=== PATIENT | female | born 1995 | race Caucasian/White ===

== ENCOUNTER 2021-09-23 09:27 | Emergency (ER) | payer OTHER, SELFPAY ==
[2021-09-23 09:41] VITALS: BP 110/65; PULSE 82; RESP 16; TEMP 36.9; O2SAT 99
--- NOTE | 2021-09-23 10:02 | ED.DIZZY ---
HPI - Dizziness General Chief Complaint: Ear Stated Complaint: dizziness Time Seen by Provider: 09/23/21 10:15 Source: patient and RN notes reviewed Mode of arrival: ambulatory Limitations: no limitations History of Present Illness HPI Narrative: 26-year-old female presents with concern for ear fullness, whooshing sound, feels like her equilibrium is off. Reports sitting up from a lying position elicits the dizzy feeling. She denies any headache, thunderclap headache, weakness in any extremity, difficulty speaking or swallowing. Reports she has just ended her 10-day quarantine. For positive Covid infection. She reports mild nasal congestion and rhinorrhea. She denies body aches, fever, sweats, chills, sore throat, diarrhea, abdominal pain. Reports nausea and vomiting secondary to the dizziness. Reports she is taken Dramamine with no results. MD elicited complaint: dizziness Related Data Home Medications Medication Instructions Recorded Confirmed albuterol sulfate 90 mcg INHALATION PRN PRN 09/23/21 09/23/21 medroxyprogesterone [Depo-Provera 150 mg IM PER PKG DIR 09/23/21 09/23/21 Contraceptive] sertraline 100 mg PO DAILY 09/23/21 09/23/21 Allergies Allergy/AdvReac Type Severity Reaction Status Date / Time No Known Allergies Allergy Verified 09/23/21 09:58 Review of Systems Review of Systems: CONSTITUTIONAL: Denies malaise, chills, sweats, or fever. EYES: Denies visual changes ENT: Reports rhinorrhea, congestion, ear fullness. Denies sinus pain, otalgia or sore throat. CARDIOVASCULAR: Denies chest pain, palpitations, or edema. RESPIRATORY: Denies cough or dyspnea. GASTROINTESTINAL: Denies abdominal pain, diarrhea. Reports nausea and vomiting MUSCULOSKELETAL: Denies myalgia. NEUROLOGIC: Denies numbness, weakness, or headache. Reports dizziness All systems reviewed & are unremarkable except as noted in HPI and below PMFSH Family History Family History (Updated 05/08/16 @ 23:19 by DOCTOR UNKNOWN) Sibling Family history of mental disorder Depression Asthma Grandparent Family history of condition Family history of malignant neoplasm of breast Diabetes mellitus Social History Social History Smoking status: Light tobacco smoker Alcohol intake: never Comments At time of signature, agree with nursing past medical, surgical, social and family history. There is no relevant family history pertinent to the presenting complaint Exam Narrative: GENERAL: Well-appearing, well-nourished, and in no acute distress. HEAD: Normocephalic EYES: PERRLA, conjunctivae clear ENT: Nares clear, turbinates edematous and erythematous, clear discharge. Mucous membranes moist. TM pearly mar with dull light reflex bilaterally; no tragal tenderness. Oropharynx not erythematous without lesions. Tonsils not enlarged and without exudate, no drooling, no hoarseness, no trismus, uvula midline. NECK: Supple. No lymphadenopathy CHEST: Clear to auscultation, breath sounds equal. No wheezing, rhonchi, rales, or stridor. No respiratory distress, speaks in full sentences. HEART: Regular rate and rhythm. No murmur heard. SKIN: Warm, dry, no rash. NEURO: Alert and oriented x3. No focal deficits. Cranial nerves II through XII grossly intact. Nacho-Hallpike test negative PSYCH: Normal mood and affect Course Course Emergency Course: Patient is aware of diagnosis, understands and agrees to treatment plan. Anticipatory guidance given. Patient agrees to follow-up as directed and is aware of reasons to seek care at the emergency department. Portions of this record may have been created with voice recognition software Vital Signs Vital signs: Vital Signs Temperature 98.4 F 09/23/21 09:41 Pulse Rate 82 09/23/21 09:41 Respiratory Rate 16 09/23/21 09:41 Blood Pressure 110/65 09/23/21 09:41 Pulse Oximetry 99 09/23/21 09:41 Temperature 98.4 F 09/23/21 09:41 Pulse Rate 82 09/23/21 09:41 Respiratory Rate
== END 2021-09-23 10:44 | disposition home or self-care (01) ==
PROVIDERS: Emergency Provider Nurse Practitioner; PCP Registered Nurse
DX: H69.91 Unspecified Eustachian tube disorder, right ear (principal); F17.200 Nicotine dependence, unspecified, uncomplicated
CPT/HCPCS: 99213; G0463

== ENCOUNTER 2022-06-16 18:27 | Emergency (ER) | payer OTHER, SELFPAY ==
[2022-06-16 19:45] VITALS: BP 130/86; PULSE 98; RESP 12; TEMP 36.4; O2SAT 98
--- NOTE | 2022-06-16 19:53 | ED.GENADULT ---
HPI - General Adult General Chief complaint: Extremity Injury, Upper Stated complaint: bump right thumb Time Seen by Provider: 06/16/22 19:53 Source: patient Mode of arrival: ambulatory Limitations: no limitations History of Present Illness HPI narrative: 27 y/o female presented for right thumb redness and pain. Site started as small fluid filled bump, she squeezed it and it became more red and swollen. Denies streaking or fever. She gets these small bumps to her fingers and hands at times, they feels itchy with mild pain. She squeezes them but states she has never had an infected site. Has not taken anything for symptoms. Related Data Home Medications Medication Instructions Recorded Confirmed albuterol sulfate 90 mcg/actuation 90 mcg inhalation PRN PRN 09/23/21 06/16/22 aerosol inhaler Shortness Of Breath Or Wheezing medroxyprogesterone 150 mg/mL 150 mg IM PER PKG DIR 09/23/21 06/16/22 intramuscular suspension sertraline 100 mg tablet 100 mg PO DAILY 09/23/21 06/16/22 fluticasone 250 mcg-salmeterol 50 250 inh inhalation DAILY 06/16/22 06/16/22 mcg/dose blistr powdr for inhalation (Advair Diskus) lorazepam 1 mg tablet 1 mg PO DAILY PRN Anxiety 06/16/22 06/16/22 Allergies Allergy/AdvReac Type Severity Reaction Status Date / Time No Known Allergies Allergy Verified 06/16/22 19:40 Review of Systems Review of Systems: CONSTITUTIONAL: Denies body aches, fever, chills, or sweats. EYES: Denies visual changes, redness, or discharge. ENT: Denies rhinorrhea, congestion CARDIOVASCULAR: Denies chest pain, palpitations, or edema. RESPIRATORY: Denies cough or dyspnea. GASTROINTESTINAL: Denies abdominal pain, nausea, vomiting, or diarrhea. SKIN: Redness and swelling to right hand MUSCULOSKELETAL: Denies back pain, joint pain, or myalgia. NEUROLOGIC: Denies headache, numbness, tingling, or weakness. [facility] Family History Family History Sibling Family history of mental disorder Depression Asthma Grandparent Family history of condition Family history of malignant neoplasm of breast Diabetes mellitus Social History Social History Smoking status: Light tobacco smoker Alcohol intake: never Comments At time of signature, I have reviewed and agree with nursing past medical, surgical, social and family history unless otherwise noted. Please see nursing chart for further information. There is no relevant family history pertinent to the presenting complaint Exam Narrative: GENERAL: Well-appearing EYES: conjunctivae clear, and EOMI. ENT: Mucous membranes moist. CHEST: Clear to auscultation. HEART: Regular rate and rhythm. SKIN: Warm, dry. Right thumb with induration at web space between 1st and 2nd digit, approx 2mm diameter open center no fluctuance or active drainage; warm and tender to palpation NEURO: Alert and oriented x3. Course Course Emergency Course: Patient is aware of diagnosis, understands and agrees to treatment plan. Anticipatory guidance given. Patient agrees to follow-up as directed and is aware of reasons to seek care at the emergency department. Portions of this record may have been created with voice recognition software Level of Care: Express Care Visit Vital Signs Vital signs: Vital Signs Temperature 97.6 F 06/16/22 19:45 Pulse Rate 98 06/16/22 19:45 Respiratory Rate 12 06/16/22 19:45 Blood Pressure 130/86 06/16/22 19:45 Pulse Oximetry 98 06/16/22 19:45 Temperature 97.6 F 06/16/22 19:45 Pulse Rate 98 06/16/22 19:45 Respiratory Rate 12 06/16/22 19:45 Blood Pressure 130/86 06/16/22 19:45 Pulse Oximetry 98 06/16/22 19:45 Reviewed Medical Decision Making [facility] Narrative Medical decision making narrative: Advised supportive measures and signs/symptoms to go to the ER. Pt is appropriate for outpt treatment and f/u.
== END 2022-06-16 20:08 | disposition home or self-care (01) ==
PROVIDERS: Emergency Provider Nurse Practitioner Family; PCP Registered Nurse
DX: L03.011 Cellulitis of right finger (principal); F17.200 Nicotine dependence, unspecified, uncomplicated; J45.909 Unspecified asthma, uncomplicated; Z86.16 Personal history of COVID-19; E28.2 Polycystic ovarian syndrome; F41.9 Anxiety disorder, unspecified; F32.A Depression, unspecified
CPT/HCPCS: 99213; G0463

== ENCOUNTER 2022-07-01 17:38 | Emergency (ER) | payer OTHER, SELFPAY ==
[2022-07-01 17:47] VITALS: BP 132/69; PULSE 108; RESP 16; TEMP 37.5; O2SAT 100
--- NOTE | 2022-07-01 19:05 | ED.GENADULT ---
HPI - General Adult General Chief complaint: Ear Stated complaint: ear pain Source: patient Mode of arrival: ambulatory Limitations: no limitations History of Present Illness HPI narrative: Patient presents for evaluation of left-sided ear pain for the last 3 days. She indicates she had COVID in the past and had persistent left-sided ear pain following that diagnosis. She underwent several tests including CT of her head. She states approximately 3 weeks ago she had a left tympanostomy tube placed by ENT to alleviate pressure in her left ear. She states that she considerable improvement in her discomfort following the procedure. She indicates that she saw her ENT provider a few weeks ago and was advised that her tube was intact. She states over the past three days her pain has returned. She has some muffled hearing on the left side. She denies any tinnitus or drainage from the left side of her ear. She reports some sinus congestion but denies any significant drainage and also denies fever, chills, sore throat, respiratory symptoms. Related Data Home Medications Medication Instructions Recorded Confirmed albuterol sulfate 90 mcg/actuation 90 mcg inhalation PRN PRN 09/23/21 07/01/22 aerosol inhaler Shortness Of Breath Or Wheezing medroxyprogesterone 150 mg/mL 150 mg IM PER PKG DIR 09/23/21 07/01/22 intramuscular suspension sertraline 100 mg tablet 100 mg PO DAILY 09/23/21 07/01/22 fluticasone 250 mcg-salmeterol 50 250 inh inhalation DAILY 06/16/22 07/01/22 mcg/dose blistr powdr for inhalation (Advair Diskus) lorazepam 1 mg tablet 1 mg PO DAILY PRN Anxiety 06/16/22 07/01/22 buspirone 10 mg tablet 10 mg DIRECTED 07/01/22 07/01/22 montelukast 10 mg tablet 10 mg DIRECTED 07/01/22 07/01/22 Allergies Allergy/AdvReac Type Severity Reaction Status Date / Time No Known Allergies Allergy Verified 06/16/22 19:40 Review of Systems Review of Systems: CONSTITUTIONAL: Denies fever, chills, or sweats. EYES: Denies visual changes, redness, or discharge. ENT: Reports left-sided ear pain and nasal congesiton. Denies rhinorrhea and sore throat CARDIOVASCULAR: Denies chest pain, palpitations, or edema. RESPIRATORY: Denies cough or dyspnea. GASTROINTESTINAL: Denies abdominal pain, nausea, vomiting, or diarrhea. GENITOURINARY: Denies dysuria or hematuria. SKIN: Denies rash or itching. MUSCULOSKELETAL: Denies back pain, joint pain, or myalgia. NEUROLOGIC: Denies headache, numbness, dizziness, or weakness. PSYCHIATRIC: Denies anxiety or depression. [facility] Past Medical History Medical History Anxiety Depression History of COVID-19 Surgical History Surgical History History of tympanostomy tube placement Family History Family History Sibling Family history of mental disorder Depression Asthma Grandparent Family history of condition Family history of malignant neoplasm of breast Diabetes mellitus Social History Social History Smoking status: Light tobacco smoker Alcohol intake: never Substance use: never Gender identity (if verbalized by the patient): Female Spiritual care concerns: No Exam Narrative: GENERAL: Well-appearing, well-nourished, and in no acute distress. HEAD: Normocephalic, atraumatic. EYES: PERRLA and EOMI. ENT: Nares clear, no rhinorrhea or epistaxis. Mucous membranes moist. Oropharynx without tonsillar hypertrophy exudate or other lesions. Left tympanostomy tube is in place. There are some crusting noted surrounding the insertion site. There is some erythema to left TM NECK: Supple. No adenopathy or masses. No carotid bruits or JVD CHEST: Clear to auscultation. No respiratory distress. No wheezes rales or rhonchi HEART: Regular rate and
== END 2022-07-01 19:05 | disposition home or self-care (01) ==
PROVIDERS: Emergency Provider Nurse Practitioner
DX: H92.02 Otalgia, left ear (principal); F41.9 Anxiety disorder, unspecified; F32.A Depression, unspecified; Z86.16 Personal history of COVID-19
CPT/HCPCS: 99211; G0463

== ENCOUNTER 2023-01-02 17:40 | Emergency (ER) | payer OTHER, SELFPAY ==
[2023-01-02 17:49] VITALS: BP 133/104; PULSE 102; RESP 16; TEMP 37.6; O2SAT 99
--- NOTE | 2023-01-02 17:54 | ED.EAR ---
HPI - Ear Problem General Chief complaint: Ear Stated complaint: ear pain Time Seen by Provider: 01/02/23 18:10 Source: patient and RN notes reviewed Mode of arrival: ambulatory Limitations: no limitations History of Present Illness HPI Narrative: 27-year-old female presents concern for right ear pain that started yesterday. She reports nasal drainage in sore throat on the right side. She reports she is using regular oil without relief. Reports history of ear problems MD Complaint: ear pain Related Data Home Medications Medication Instructions Recorded Confirmed albuterol sulfate 90 mcg/actuation 90 mcg inhalation PRN PRN 09/23/21 01/02/23 aerosol inhaler Shortness Of Breath Or Wheezing medroxyprogesterone 150 mg/mL 150 mg IM PER PKG DIR 09/23/21 01/02/23 intramuscular suspension sertraline 100 mg tablet 100 mg PO DAILY 09/23/21 01/02/23 fluticasone 250 mcg-salmeterol 50 250 inh inhalation DAILY 06/16/22 01/02/23 mcg/dose blistr powdr for inhalation (Advair Diskus) lorazepam 1 mg tablet 1 mg PO DAILY PRN Anxiety 06/16/22 01/02/23 Allergies Allergy/AdvReac Type Severity Reaction Status Date / Time No Known Allergies Allergy Verified 01/02/23 17:40 Review of Systems Review of Systems: CONSTITUTIONAL: Denies malaise, chills, sweats, or fever. EYES: Denies visual changes, redness, or discharge. ENT: Reports rhinorrhea. Denies congestion, sinus pain, and sore throat. Reports right ear pain CARDIOVASCULAR: Denies chest pain, palpitations, or edema. RESPIRATORY: Denies cough. Denies dyspnea. GASTROINTESTINAL: Denies abdominal pain, nausea, vomiting, diarrhea SKIN: Denies rash or itching. MUSCULOSKELETAL: Denies myalgia. NEUROLOGIC: Denies headache. All systems reviewed & are unremarkable except as noted in HPI and below PMFSH Past Medical History Medical History (Updated 01/02/23 @ 18:19 by Raven Roper NP) Anxiety Depression History of COVID-19 Surgical History Surgical History History of tympanostomy tube placement Family History Family History Sibling Family history of mental disorder Depression Asthma Grandparent Family history of condition Family history of malignant neoplasm of breast Diabetes mellitus Social History Social History Smoking status: Light tobacco smoker Alcohol intake: never Substance use: never Gender identity (if verbalized by the patient): Female Spiritual care concerns: No Comments At time of signature, agree with nursing past medical, surgical, social and family history. There is no relevant family history pertinent to the presenting complaint Exam Narrative: GENERAL: Well-appearing, well-nourished, and in no acute distress. HEAD: Normocephalic EYES: PERRLA, conjunctivae clear ENT: Nares clear, turbinates edematous, clear discharge. Mucous membranes moist. Left tM pearly mar with dull light reflex, right TM erythematous bulging; no tragal tenderness. Oropharynx not erythematous without lesions. Tonsils not enlarged and without exudate, no drooling, no hoarseness, no trismus, uvula midline. NECK: Supple. No lymphadenopathy CHEST: Clear to auscultation, breath sounds equal. No wheezing, rhonchi, rales, or stridor. No respiratory distress, speaks in full sentences. HEART: Regular rate and rhythm. No murmur heard. SKIN: Warm, dry, no rash. NEURO: Alert and oriented x3. PSYCH: Normal mood and affect Course Course Emergency Course: Patient is aware of diagnosis, understands and agrees to treatment plan. Anticipatory guidance given. Patient agrees to follow-up as directed and is aware of reasons to seek care at the emergency department. Portions of this record may have been created with voice recognition software Level of Care: Express Care Visit Vital Signs Vit
[2023-01-02 18:27] VITALS: BP 122/78
== END 2023-01-02 18:27 | disposition home or self-care (01) ==
PROVIDERS: Emergency Provider Nurse Practitioner; PCP Registered Nurse
DX: H66.91 Otitis media, unspecified, right ear (principal); F17.200 Nicotine dependence, unspecified, uncomplicated; F41.9 Anxiety disorder, unspecified; F32.A Depression, unspecified; Z86.16 Personal history of COVID-19
CPT/HCPCS: 99213; G0463

== ENCOUNTER 2023-07-28 16:27 | Emergency (ER) | payer OTHER, SELFPAY ==
[2023-07-28 16:35] VITALS: PULSE 94; RESP 16; TEMP 36.6; O2SAT 100
--- NOTE | 2023-07-28 16:59 | ED.GENADULT ---
HPI - General Adult General Chief complaint: Ear Stated complaint: Left Ear Irritation Time Seen by Provider: 07/28/23 16:59 Source: patient, RN notes reviewed and old records reviewed Mode of arrival: ambulatory Limitations: no limitations History of Present Illness HPI narrative: 28-year-old female presents to the [facility] with left ear discomfort. Recently did a round of steroids for fluid on the ear. States she has been having issue with the ear for many years. Has had a tube in the ear years ago but states that had to be removed due to increased pain. Denies any fevers. States that she is going out of town and needs it fixed. Denies putting anything in her ears. Has not followed up with her ENT provider States that she does use Flonase daily Treatments prior to arrival: other (Steroids) Related Data Home Medications Medication Instructions Recorded Confirmed albuterol sulfate 90 mcg/actuation 90 mcg inhalation PRN PRN 09/23/21 07/28/23 aerosol inhaler Shortness Of Breath Or Wheezing medroxyprogesterone 150 mg/mL 150 mg IM PER PKG DIR 09/23/21 07/28/23 intramuscular suspension sertraline 100 mg tablet 100 mg PO DAILY 09/23/21 07/28/23 fluticasone 250 mcg-salmeterol 50 250 inh inhalation DAILY 06/16/22 07/28/23 mcg/dose blistr powdr for inhalation (Advair Diskus) lorazepam 1 mg tablet 1 mg PO DAILY PRN Anxiety 06/16/22 07/28/23 Allergies Allergy/AdvReac Type Severity Reaction Status Date / Time No Known Allergies Allergy Verified 07/28/23 16:34 Review of Systems Review of Systems: All systems reviewed & are unremarkable except as noted in HPI and below Constitutional: Constitutional: Reports no additional constitutional complaints Eyes: Eyes: Reports no additional eye complaints ENT: Reports as per HPI and Reports otalgia Cardiovascular: Cardiovascular: Reports no additional cardiovascular complaints, Denies chest pain and Denies dyspnea Respiratory: Respiratory: Reports no additional respiratory complaints, Denies chest congestion, Denies cough and Denies dyspnea Gastrointestinal: Gastrointestinal: Reports no additional gastrointestinal complaints, Denies abdominal pain, Denies nausea and Denies vomiting Musculoskeletal: Musculoskeletal: Reports no additional musculoskeletal complaints Integumentary/Breasts: Skin/Breast: Reports system reviewed and no additional complaints, except as docu Neurologic: Reports system reviewed and no additional complaints, except as documented Psychiatric: Psychiatric: Reports no additional psychiatric complaints Allergic/Immunologic: Allergic/Immunologic: Reports no additional allergic/immunologic complaints PMFSH Past Medical History Medical History Anxiety Depression History of COVID-19 Surgical History Surgical History History of tympanostomy tube placement Family History Family History Sibling Family history of mental disorder Depression Asthma Grandparent Family history of condition Family history of malignant neoplasm of breast Diabetes mellitus Social History Social History Smoking status: Light tobacco smoker Alcohol intake: never Substance use: never Gender identity (if verbalized by the patient): Female Spiritual care concerns: No Comments At the time of my signature, I reviewed and agree with the nursing past medical, surgical, social, and family history. There is no relevant family history pertinent to the patient complaint. Exam Const: General: cooperative, healthy appearing, comfortable, no acute distress, well developed, alert and well nourished Nutritional Appearance: well nourished and obese Orientation/consciousness: patient oriented x3 Limitations: no limitations HENMT: Head: n
[2023-07-28 17:00] VITALS: BP 130/72
== END 2023-07-28 17:25 | disposition home or self-care (01) ==
PROVIDERS: Emergency Provider Nurse Practitioner; PCP Registered Nurse
DX: H60.92 Unspecified otitis externa, left ear (principal); F41.9 Anxiety disorder, unspecified; F32.A Depression, unspecified; Z86.16 Personal history of COVID-19
CPT/HCPCS: 99213; G0463

== ENCOUNTER 2024-03-13 09:42 | Emergency (ER) | payer OTHER, SELFPAY ==
[2024-03-13 09:49] VITALS: BP 135/70; PULSE 82; RESP 18; TEMP 37.1; O2SAT 99
--- NOTE | 2024-03-13 10:13 | ED.FEMALEGU ---
HPI - Female Genitourinary General Chief complaint: Urogenital-Female Stated complaint: Urinary Problems and Lower Back Pain Time Seen by Provider: 03/13/24 09:59 Source: patient and RN notes reviewed Mode of arrival: ambulatory Limitations: no limitations History of Present Illness HPI Narrative: Patient presents today complaining of right-sided low back pain since 0230 this morning, and a one-week history of dysuria intermittently. Denies any additional symptoms to include urinary frequency, urgency, abdominal pain, fever. She has been taking some [id number] azo with some relief. Related Data Home Medications Medication Instructions Recorded Confirmed albuterol sulfate 90 mcg/actuation 90 mcg inhalation PRN PRN 09/23/21 03/13/24 aerosol inhaler Shortness Of Breath Or Wheezing medroxyprogesterone 150 mg/mL 150 mg IM PER PKG DIR 09/23/21 03/13/24 intramuscular suspension sertraline 100 mg tablet 100 mg PO DAILY 09/23/21 03/13/24 fluticasone 250 mcg-salmeterol 50 250 inh inhalation DAILY 06/16/22 03/13/24 mcg/dose blistr powdr for inhalation (Advair Diskus) lorazepam 1 mg tablet 1 mg PO DAILY PRN Anxiety 06/16/22 03/13/24 Allergies Allergy/AdvReac Type Severity Reaction Status Date / Time No Known Allergies Allergy Verified 03/13/24 09:45 Review of Systems Review of Systems: CONSTITUTIONAL: Denies body aches, fever, chills, or sweats. EYES: Denies visual changes, redness, or discharge. ENT: Denies rhinorrhea, congestion, sore throat, or otalgia. CARDIOVASCULAR: Denies chest pain, palpitations, or edema. RESPIRATORY: Denies cough or dyspnea. GASTROINTESTINAL: Denies abdominal pain, nausea, vomiting, or diarrhea. GENITOURINARY: Denies hematuria. + dysuria SKIN: Denies rash, itching, or wounds. MUSCULOSKELETAL: Denies joint pain, or myalgia.+ right-sided low back pain NEUROLOGIC: Denies headache, numbness, tingling, or weakness. PSYCH: Denies depression or anxiety. [facility] Past Medical History Medical History Anxiety Depression History of COVID-19 Surgical History Surgical History History of tympanostomy tube placement Family History Family History Sibling Family history of mental disorder Depression Asthma Grandparent Family history of condition Family history of malignant neoplasm of breast Diabetes mellitus Social History Social History Smoking status: Light tobacco smoker Alcohol intake: never Substance use: never Gender identity (if verbalized by the patient): Female Spiritual care concerns: No Comments At time of signature, I have reviewed and agree with nursing past medical, surgical, social and family history unless otherwise noted. Please see nursing chart for further information. There is no relevant family history pertinent to the presenting complaint Exam Narrative: GENERAL: Well-appearing, well-nourished, and in no acute distress. HEAD: Normocephalic, atraumatic. EYES: EOMI. No redness or drainage. Conjunctivae normal. ENT: Mucous membranes pink and moist. NECK: Normal AROM. CHEST: No respiratory distress. Clear to auscultation. HEART: Regular rate and rhythm. No murmur appreciated. Normal peripheral pulses. ABDOMEN: Soft, nontender, nondistended, normal active bowel sounds. +Right mild CVAT MUSCULOSKELETAL: No bony tenderness. EXTREMITIES: Normal range of motion. No edema. SKIN: Warm, dry, no rash. Capillary refill normal. Normal skin turgor. NEURO: No focal deficits. Alert and oriented x3. Gait steady. PSYCH: Normal affect. No signs of depression or anxiety. Course Course Level of Care: Express Care Visit Vital Signs Vital signs: Vital Signs Temperature 98.8 F 03/13/24 09:49 P
== END 2024-03-13 10:25 | disposition home or self-care (01) ==
PROVIDERS: Emergency Provider Nurse Practitioner; PCP Registered Nurse
DX: N30.01 Acute cystitis with hematuria (principal); F17.200 Nicotine dependence, unspecified, uncomplicated; F41.9 Anxiety disorder, unspecified; F32.A Depression, unspecified; Z86.16 Personal history of COVID-19
CPT/HCPCS: 81003; 87077; 87086; 87088; 87186; 99213; G0463

== ENCOUNTER 2025-07-16 13:29 | Emergency (ER) | payer OTHER, MEDICAID, SELFPAY ==
[2025-07-16 13:38] VITALS: BP 146/91; PULSE 108; RESP 18; TEMP 36.7; O2SAT 99
--- NOTE | 2025-07-16 13:38 | ED.URI ---
HPI - URI/Sore Throat General Chief Complaint: Upper Respiratory Infection Stated Complaint: Cough Time Seen by Provider: 07/16/25 13:38 Source: patient, RN notes reviewed and old records reviewed Mode of arrival: ambulatory Limitations: no limitations History of Present Illness HPI Narrative: 30-year-old female presents to the [facility] with a cough for 6 days. History of asthma. Reports she has lost her voice on Wednesday. Has had intermittent nausea. Noted today that her urine was dark and burning. States that she has tried taking Sudafed using and nebulizer treatment. Denies chest pain, abdominal pain. Denies any fevers. Onset (ago): day(s) (6) Related Data Home Medications ?Medication ?Instructions ?Recorded ?Confirmed ?Last Taken ?Type albuterol sulfate 90 mcg/actuation 90 mcg inhalation PRN PRN 09/23/21 03/13/24 Unknown History aerosol inhaler Shortness Of Breath Or Wheezing fluticasone 250 mcg-salmeterol 50 250 inh inhalation DAILY 06/16/22 03/13/24 Unknown History mcg/dose blistr powdr for inhalation (Advair Diskus) lorazepam 1 mg tablet 1 mg PO DAILY PRN Anxiety 06/16/22 03/13/24 Unknown History Allergies Allergy/AdvReac Type Severity Reaction Status Date / Time No Known Allergies Allergy Verified 07/16/25 13:39 Review of Systems Review of Systems: All systems reviewed & are unremarkable except as noted in HPI and below Constitutional: Constitutional: Reports no additional constitutional complaints ENT: Reports as per HPI Cardiovascular: Cardiovascular: Reports no additional cardiovascular complaints, Denies chest pain and Denies dyspnea Respiratory: Respiratory: Reports as per HPI, Denies chest congestion, Reports cough and Denies dyspnea Genitourinary: Genitourinary: Reports as per HPI Musculoskeletal: Musculoskeletal: Reports no additional musculoskeletal complaints Integumentary/Breasts: Skin/Breast: Reports system reviewed and no additional complaints, except as docu PMFSH Past Medical History Medical History Anxiety Depression History of COVID-19 Surgical History Surgical History History of tympanostomy tube placement Family History Family History Sibling Family history of mental disorder Depression Asthma Grandparent Family history of condition Family history of malignant neoplasm of breast Diabetes mellitus Social History Social History Smoking status: Light tobacco smoker Alcohol intake: never Substance use: never Gender identity (if verbalized by the patient): Female Spiritual care concerns: No Comments At the time of my signature, I reviewed and agree with the nursing past medical, surgical, social, and family history. There is no relevant family history pertinent to the patient complaint. Exam Const: General: cooperative, healthy appearing, comfortable, no acute distress, well developed, alert and well nourished Nutritional Appearance: well nourished Orientation/consciousness: patient oriented x3 Limitations: no limitations HENMT: Head: normal to inspection Ears: hearing grossly normal bilaterally, external ears normal, TM's normal bilaterally, EAC's normal, mastoids normal and no periauricular adenopathy Face and sinus: normal facial exam and face symmetric Mouth: Yes Normal oral and palatal mucosa present, Yes lip normal, Yes tongue normal and Yes moist mucous membranes Throat: posterior oropharynx normal, uvula midline and no uvular edema Eyes: General: appearance normal, both eyes and all related structures Alignment and Position: alignment normal Neck: Neck: normal visual inspection, full ROM, no lymphadenopathy and no meningeal signs Chest: Chest palpation & inspection: normal inspection of the chest Resp: Effort & Inspection: normal respiratory effort and able to speak in complete sentences Auscultation: no crackles, no rales, no rhonchi and wheezes expiratory wheezes (Mild right mid to lower) Cardio: Rate: regular rate GI: GI Palp: No abdominal tenderness : General: Yes no CVA tenderness Skin: General skin exam: normal color and no rashes or lesions noted Neuro: General: patient oriented x3, gait normal, moves all extremities and no meningeal signs Cognition (Neuro): normal cognition Speech: normal speech Gait exam (Neuro): Normal gait present Extrem: General: normal to inspection, full ROM, capillary refill normal and normal gait Psych: Appearance: grossly normal and well kempt Mental Status: mental status grossly normal Speech and movement: Normal speech and movement present and Clear speech present Affect: normal affect Attitude: cooperative Course Course Level of Care: Express Care Visit Vital Signs Vital signs: Vital Signs Temperature 98.0 F 07/16/25 13:38 Pulse Rate 108 H 07/16/25 13:38 Respiratory Rate 18 07/16/25 13:38 Blood Pressure 146/91 H 07/16/25 13:38 Pulse Oximetry 99 07/16/25 13:38 Oxygen Delivery Room Air 07/16/25 13:38 Temperature 98.0 F 07/16/25 13:38 Pulse Rate 108 H 07/16/25 13:38 Respiratory Rate 18 07/16/25 13:38 Blood Pressure 146/91 H 07/16/25 13:38 Pulse Oximetry 99 07/16/25 13:38 Oxygen Delivery Room Air 07/16/25 13:38 Reviewed MDM - URI/Sore Throat MDM Narrative Medical decision making narrative: Patient sitting in exam. Patient is nontoxic vitals stable. Patient presents 6 day history of a cough. Concern for UTI that started today. Urine just shows probability of a UTI, patient is exam more consistent with asthma exacerbation, encourage patient to use a nebulizer. Will treat with Augmentin for UTI/bronchitis. Prescribed prednisone. Patient appropriate for outpatient treatment with close follow-up Discharge instructions reviewed with patient, as well as provided in writing per nursing staff. The instructions also include specific and strict return/GO TO THE ER as well as f/u information. All questions have been answered, and the patient deny any further questions with discharge and discharge plan. Some parts of this dictation were generated by voice recognition software and may contain typographical and/or grammatical inaccuracies. Differential Diagnosis Differential diagnosis: Likely upper respiratory infection, otitis media, sinusitis, viral infection, bronchitis, influenza and pharyngitis Lab Data Labs: Lab Results 07/16/25 Range/Units 13:45 POC Urine Color Bright POC Urine Clarity Cloudy POC Urine pH 5.5 POC Ur Specif [place] 1.030 POC Urine Protein 2+ (Negative) POC Ur Glucose (UA) Negative (Negative) POC Urine Ketones 3+ (Negative) POC Urine Blood 2+ (Negative) POC Urine Nitrite Negative (Negative) POC Urine Bilirubin 2+ (Negative) POC Urine Urobilinogen 1.0 POC U Leukocyte Esteras Trace (Negative) Reviewed Critical Care Time Critical Care Time Critical Care Time: No Discharge Plan Discharge Clinical Impression: Upper respiratory infection, Asthma, UTI (urinary tract infection) Patient Disposition: Home Condition: Stable Instructions: Antibiotic Form, Asthma (ED), Urinary Tract Infection in Women (DC), Dysuria (ED) Additional Instructions: Increased water intake Take Tylenol as needed for pain Take antibiotic as prescribed Today your urine dip showed a probability of a UTI. You have been prescribed an antibiotic. Your urine will be sent to our lab for a culture. If at that time a bacteria grows that is not covered by the antibiotic prescribed you will be notified. Follow-up with primary care For new or worsening symptoms go directly to the emergency room Use your nebulizer as we discussed Take the steroids as prescribed Patient Language: Frisian Prescriptions: New amoxicillin-pot clavulanate 875-125 mg tablet 1 tablet PO Q12H Qty: 10 0RF prednisone 20 mg tablet See Rx Instructions .Route .COMPLEX Qty: 9 0RF Rx Instructions: Take 40 mg daily for 3 days, 20 mg daily for 3 days No Action fluticasone propion-salmeterol [Advair Diskus] 250-50 mcg/dose blister with device 250 inh INHALATION DAILY lorazepam 1 mg tablet 1 mg PO DAILY PRN (Reason: Anxiety) albuterol sulfate 90 mcg/actuation HFA aerosol inhaler 90 mcg INHALATION PRN PRN (Reason: Shortness Of Breath Or Wheezing) Follow-up/Referrals: Lydia,HOLLY Garcia [Primary Care Provider] - 2 Weeks Stand Alone Forms: Work/School Release IP Time of Disposition: 14:02
[2025-07-16 13:50] LABS: EDUAAPPEAR Cloudy; EDUABILI 2+ (Negative); EDUABLOOD 2+ (Negative); EDUACOLOR1 Bright; EDUAGLUCOSE Negative (Negative); EDUAKETONE 3+ (Negative); EDUALEUKO Trace (Negative); EDUANITRATE Negative (Negative); EDUAPH 5.5; EDUAPROTEIN 2+ (Negative); EDUASPGRAVITY 1.030; EDUAUROBILI 1.0
== END 2025-07-16 14:08 | disposition home or self-care (01) ==
PROVIDERS: Emergency Provider Nurse Practitioner; PCP Registered Nurse
DX: J06.9 Acute upper respiratory infection, unspecified (principal); J45.909 Unspecified asthma, uncomplicated; N39.0 Urinary tract infection, site not specified; F41.9 Anxiety disorder, unspecified; F17.200 Nicotine dependence, unspecified, uncomplicated; Z86.16 Personal history of COVID-19
CPT/HCPCS: 81003; 99213; G0463